=== PATIENT | female | born 1940 | race Hispanic/Latino ===

== ENCOUNTER 2020-03-02 14:56 | Inpatient (IN) | payer OTHER ==
--- OUTSIDE RECORDS SUMMARY | 2020-03-02 14:59 | XMS REPORT | Clinical Summary ---
:1940 Author Organization [facility] Address [address] [place] [address] Care Team Providers Name Role Phone Otto Magdaleno MD Primary Care Provider [phone] Allergies Active Allergy Reactions Severity Noted Date Comments Hydrochlorothiazide Other (See Comments) High 12/25/2018 Severe Hyponatremia (per Dr. Watkins) Medications Medication Sig Dispensed Refills Start Date End Date Status aspirin (ECOTRIN) 81 MG Take 81 mg by 0 Active enteric coated tablet mouth daily. apixaban (ELIQUIS) 5 mg Take by mouth 2 0 Active tablet (two) times a day. simvastatin (ZOCOR) 40 Take 40 mg by 0 Active MG tablet mouth nightly. calcium Take 1 tablet by 0 Act mia carbonate/vitamin D3 mouth daily. (CALCIUM 600 + D,3, ORAL) psyllium (METAMUCIL) Take 1 packet by 0 Active 3.4 gram packet mouth 2 (two) times a day. Active Problems Problem Noted Date Acute renal failure (ARF) 12/24/2018 Social History Tobacco Use Types Packs/Day Years Used Date Never Assessed Alcohol Use Drinks/Week oz/Week Comments Never Alcohol Habits Answer Date Recorded How often do you have a drink containing alcohol? Never 12/24/2018 How many drinks containing alcohol do you have on a typical Not asked day when you are drinking? How often do you have six or more drinks on one occasion? No t asked Sex Assigned at Date Recorded Not on file Job Start Date Occupation Industry Not on file Not on file Not on file Travel History Travel Start Travel End No recent travel history available. Last Filed Vital Signs Not on file Plan of Treatment Health Maintenance Due Date Last Done Comments SHINGLES VACCINES (#1) 01/16/1988 65+ PNEUMOCOCCAL VACCINE (1 of 2 - PCV13) 2003 INFLUENZA VACCINE 03/21/2020 Results Not on fileafter 03/02/2019 Insurance Payer Benefit Plan / Subscriber ID Effective Dates Phone Addre ss Type Group [facility] MED[facility] MEDIC[facility] xxxxxxxxx 2018-Present HMO HMO/PPO MEDICAID MEDICAID xxxxxxxxx 2018-Present Med icaid Advance Directives For more information, please contact: [phone] Type Date Recorded Patient Lead Furnace Operator Explanati on Advance Directives, Living Will 12/24/2018 5:54 PM and 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
[2020-03-02] MEDS ORDERED: NA CHLORIDE 0.9% 1,000 ML ONE (15:19)
[2020-03-02] MEDS ORDERED: ONDANSETRON 4 MG/2 ML VIAL ONE (15:19)
[2020-03-02] MEDS ORDERED: MORPHINE 2 MG/ML SYR ONE ×2 (15:19→20:14)
[2020-03-02 15:23] LABS: Absolute Lymphocytes (CBC) 2.3 K/uL (0.7-4.9); Basophils % 0.7 % (0-1.3); Hematocrit 38.9 % (36.0-45.0); Lymphocytes % 21.9 % (15.3-44.8); MPV 9.3 fL (7.6-11.3); RBC Red Blood Cell Count 4.14 M/uL (3.86-4.86)
[2020-03-02 15:29] LABS: Protime INR 1.42
--- NOTE | 2020-03-02 15:52 | RAD REPORT ---
EXAM DESCRIPTION: CT - CTHCSPWOC - 03/02/2020 3:41 pm CLINICAL HISTORY: PAIN COMPARISON: No comparisons TECHNIQUE: Axial 5 mm thick images of the head were obtained. Axial 2 mm thick images of the cervic al spine were obtained with sagittal and coronal reconstruction images generated and reviewed. All CT scans are performed using dose optimization technique as appropriate and may include automated exposure control or mA/KV adjustment according to patient size. FINDINGS: No intracranial hemorrhage, mass, edema or acute intracranial finding. No suspicion for ac burns paiute infarction. Atrophy and chronic ischemic changes are present. Ventricles are in proportion to the volume loss. Mastoid air cells are clear. No acute paranasal sinus finding. No globe or orbit abnorm ality seen. Cervical bodies are normal in height. No subluxation abnormality. Advanced degenerative disc disease involves the discs and endplates at C5-6 and C6-7. Posterior ligamentous calcifications are present a t multiple levels. No fracture or acute bony abnormality. Central canal detail is inherently limited . No paraspinal mass or hematoma. IMPRESSION: Atrophy and chronic ischemic changes are present. No acute intracranial finding. Cervical spine degenerative changes as detailed. No acute findings seen.
--- NOTE | 2020-03-02 15:53 | RAD REPORT ---
EXAM DESCRIPTION: RAD - Chest Single View - 03/02/2020 3:36 pm CLINICAL HISTORY: COUGH, fall, hip fracture COMPARISON: None TECHNIQUE: AP portable chest image was obtained 03/02/2020 3:36 pm . FINDINGS: Scattered fibrotic lung changes are evident. No peripheral mass, consolidation or pulmonar y contusion. Cardiomegaly is present. Vasculature is mildly prominent. Significant failure or volume overload are not seen. No measurable pleural effusion and no pneumothorax. No acute bony abnormality seen. No acute aortic findings suspected. IMPRESSION: Cardiomegaly without significant failure or volume overload. Prominence of the interstitial lung pattern favored to be chronic.
--- NOTE | 2020-03-02 15:54 | RAD REPORT ---
EXAM DESCRIPTION: RAD - Pelvis - 03/02/2020 3:36 pm CLINICAL HISTORY: PAIN, fall, pelvic and left hip pain COMPARISON: Hip Left 2 View dated 03/02/2020 TECHNIQUE: AP imaging of the pelvis was obtained. FINDINGS: Lower lumbar degenerative changes are present only partially imaged. Moderate severity SI joint degenerative changes seen. The left superior and inferior pubic rami are not well visualized. F racture is doubtful. Right femur and right hip joint unremarkable. Left femur intertrochanteric fracture is present. Femoral neck is intact. No dislocation or focal lef t femoral head abnormality. Lesser trochanter still appears to be attached to the main body of the fe mur. IMPRESSION: Left femur intertrochanteric fracture with no significant distraction or angulation defo rmity. Superior and inferior pubic rami are not well visualized.
--- NOTE | 2020-03-02 15:55 | RAD REPORT ---
EXAM DESCRIPTION: RAD - Hip Left 2 View - 03/02/2020 3:36 pm CLINICAL HISTORY: PAIN, fall, left hip pain COMPARISON: No comparisons FINDINGS: AP and cross-table lateral views were obtained. The cross-table lateral view is significan tly limited due to large body habitus. Left femur intertrochanteric fracture is present with no significant degree of distraction or angulat ion deformity. Lesser trochanter still appears to be attached. No AVN or focal femoral head abnormali ty. No pathologic component seen. No soft tissue abnormality. IMPRESSION: Left femur intertrochanteric fracture as detailed.
--- NOTE | 2020-03-02 16:05 | EDPHYS ---
Physician Documentation [facility] Name: Teresa Priest Age: 80 yrs Sex: Female : 1940 Arrival Date: 03/02/2020 Time: 14:57 Bed 7 Private MD: ESTEBAN Physician Huy Mane HPI: 03/02 15:06 This 80 yrs old Female presents to ER via EMS with complaints of fall to hafsa ground, left hip pain,cannot bear weight . 15:06 The patient or guardian reports decreased range of motion, pain. that occurred at home, hafsa sustained from unknown reason, the left lower extremity is shortened, left leg is externally rotated, The patient is not able to ambulate. Patient is not able to bear weight. There is no radiation of the patient's discomfort. The complaints affect the left femoral area and left hip. Onset: The symptoms/episode began/occurred just prior to arrival. Modifying factors: The symptoms are alleviated by remaining still, the symptoms are aggravated by any movement, flexion, weight bearing. Associated signs and symptoms: Loss of consciousness: the patient experienced no loss of consciousness, Pertinent positives: headache. Severity of symptoms: At their worst the symptoms were moderate, in the emergency department the symptoms are unchanged. The patient has not experienced similar symptoms in the past. Historical: - Allergies: 15:43 No Known Allergies; tw2 - Home Meds: 15:03 aspirin 81 mg Oral TbEC 1 tab once daily [Active]; metformin 500 mg Oral tab 1 tab 2 tw2 times per day [Active]; 15:43 Eliquis 5 mg oral tab 1 tab 2 times per day [Active]; metoprolol tartrate 25 mg Oral tw2 tab 0.5 tab 2 times per day [Active]; lisinopril-hydrochlorothiazide 20-25 mg oral tab 1 tab once daily [Active]; potassium chloride 20 mEq Oral TbER 1 tab once daily [Active]; simvastatin 40 mg Oral tab 1 tab once daily [Active]; furosemide 20 mg Oral tab 1 tab once daily [Active]; - PMHx: 15:03 CHF; Diabetes - NIDDM; tw2 15:43 Hypertension; tw2 - Immunization history:: Adult Immunizations. - Social history:: Smoking status: . - Immunization history: Last tetanus immunization: unknown. - Family history:: not pertinent. ROS: 15:06 Constitutional: Negative for fever, chills, and weight loss, Eyes: Negative for injury, hafsa pain, redness, and discharge, ENT: Negative for injury, pain, and discharge, Neck: Negative for injury, pain, and swelling, Cardiovascular: Negative for chest pain, palpitations, and edema, Respiratory: Negative for shortness of breath, cough, wheezing, and pleuritic chest pain, Abdomen/GI: Negative for abdominal pain, nausea, vomiting, diarrhea, and constipation, Back: Negative for injury and pain, : Negative for injury, bleeding, discharge, and swelling, Skin: Negative for injury, rash, and discoloration, Neuro: Negative for headache, weakness, numbness, tingling, and seizure, Psych: Negative for depression, anxiety, suicide ideation, homicidal ideation, and hallucinations, Allergy/Immunology: Negative for hives, rash, and allergies, Endocrine: Negative for neck swelling, polydipsia, polyuria, polyphagia, and marked weight changes, Hematologic/Lymphatic: Negative for swollen nodes, abnormal bleeding, and unusual bruising. 15:06 MS/extremity: Positive for decreased range of motion, pain, tenderness, of the left hip, left inner thigh and left upper thigh. Exam: 15:06 Constitutional: This is a well developed, well nourished patient who is awake, alert, hafsa and in no acute distress. Head/Face: Normocephalic, atraumatic. Eyes: Pupils equal round and reactive to light, extra-ocular motions intact. Lids and lashes normal. Conjunctiva and sclera are non-icteric and not injected. Cornea within normal limits. Periorbital areas with no swelling, redness, or edema. ENT: Nares patent. No nasal discharge, no septal abnormalities noted. Tympanic membranes are normal and external auditory canals are clear. Oropharynx with no redness, swelling, or masses, exudates, or evidence of obstruction, uvula midline. Mucous membranes moist. Neck: Trachea midline, no thyromegaly or masses palpated, and no cervical lymphadenopathy. Supple, full range of motion without nuchal rigidity, or vertebral point tenderness. No Meningismus. Chest/axilla: Normal chest wall appearance and motion. Nontender with no deformity. No lesions are appreciated. Cardiovascular: Regular rate and rhythm with a normal S1 and S2. No gallops, murmurs, or rubs. Normal PMI, no JVD. No pulse deficits. Respiratory: Lungs have equal breath sounds bilaterally, clear to auscultation and percussion. No rales, rhonchi or wheezes noted. No increased work of breathing, no retractions or nasal flaring. Abdomen/GI: Soft, non-tender, with normal bowel sounds. No distension or tympany. No guarding or rebound. No evidence of tenderness throughout. Back: No spinal tenderness. No costovertebral tenderness. Full range of motion. Female : Normal external genitalia. Skin: Warm, dry with normal turgor. Normal color with no rashes, no lesions, and no evidence of cellulitis. Neuro: Awake and alert, GCS 15, oriented to person, place, time, and situation. Cranial nerves II-XII grossly intact. Motor strength 5/5 in all extremities. Sensory grossly intact. Cerebellar exam normal. Normal gait. Psych: Awake, alert, with orientation to person, place and time. Behavior, mood, and affect are within normal limits. 15:06 Musculoskeletal/extremity: ROM: limited active range of motion, limited passive range of motion, Circulation is intact in all extremities. Sensation intact. Compartment Syndrome exam of affected extremity: is normal. DVT Exam: negative Homans' sign noted on exam, no appreciated bluish discoloration, no erythema, no increased warmth, pain, swelling, tenderness. 15:27 Cardiovascular: Exam negative for acute changes, Rate: bradycardic, Rhythm: hafsa irregularly irregular. 15:27 ECG was reviewed by the Attending Physician. Vital Signs: 14:59 Temp 98.8(O); Weight 70.76 kg (R); Height 5 ft. 4 in. (162.56 cm); Pain 1/10; tw2 15:03 BP 174 / 97; Pulse 72; Resp 16; Pulse Ox 97% on R/A; tw2 16:03 BP 162 / 78; Pulse 71; Resp 17; Pulse Ox 98% on R/A; tw2 17:00 BP 178 / 72; Pulse 69; Resp 18; Pulse Ox 98% on R/A; em 18:00 BP 145 / 73; Pulse 66; Resp 18; Pulse Ox 97% on R/A; em 19:15 BP 142 / 68; Pulse 68; Resp 16; Temp 98.2(O); Pulse Ox 99% on R/A; lp1 20:36 BP 170 / 83; Pulse 77; Resp 16; Pulse Ox 97% on R/A; lp1 14:59 Body Mass Index 26.78 (70.76 kg, 162.56 cm) tw2 Mahad Coma Score: 15:02 Eye Response: spontaneous(4). Verbal Response: oriented(5). Motor Response: obeys hb commands(6). Total: 15. 16:03 Eye Response: spontaneous(4). Verbal Response: oriented(5). Motor Response: obeys tw2 commands(6). Total: 15. 17:00 Eye Response: spontaneous(4). Verbal Response: oriented(5). Motor Response: obeys em commands(6). Total: 15. 18:00 Eye Response: spontaneous(4). Verbal Response: oriented(5). Motor Response: obeys em commands(6). Total: 15. Trauma Score (Adult): 15:02 Eye Response: spontaneous(1); Verbal Response: oriented(1); Motor Response: obeys hb commands(2); Systolic BP: > 89 mm Hg(4); Respiratory Rate: 10 to 29 per min(4); [place] Score: 15; Trauma Score: 12 16:03 Eye Response: spontaneous(1); Verbal Response: oriented(1); Motor Response: obeys tw2 commands(2); Systolic BP: > 89 mm Hg(4); Respiratory Rate: 10 to 29 per min(4); Mahad Score: 15; Trauma Score: 12 17:00 Eye Response: spontaneous(1); Verbal Response: oriented(1); Motor Response: obeys em commands(2); Systolic BP: > 89 mm Hg(4); Respiratory Rate: 10 to 29 per min(4); Mahad Score: 15; Trauma Score: 12 18:00 Eye Response: spontaneous(1); Verbal Response: oriented(1); Motor Response: obeys em commands(2); Systolic BP: > 89 mm Hg(4); Respiratory Rate: 10 to 29 per min(4); [place] Score: 15; Trauma Score: 12 MDM: 14:57 Patient medically screened. [facility] 15:12 Differential diagnosis: hip fracture, intertrochanteric fracture, femoral neck hafsa fracture, femoral shaft fracture, strain. Data reviewed: vital signs, nurses notes, lab test result(s), EKG, radiologic studies. Data interpreted: account adjuster: rate is 72 beats/min, rhythm is normal sinus rhythm, Pulse oximetry: on room air. Test interpretation: by ED physician or midlevel provider: ECG, plain radiologic studies. Counseling: I had a detailed discussion with the patient and/or guardian regarding: the historical points, exam findings, and any diagnostic results supporting the discharge/admit diagnosis, lab results, radiology results, the need for further work-up and treatment in the hospital. 16:02 Physician consultation: Jimenez Jj MD and will see patient in inpatient room. ED hafsa course: TO DR WEATHERS AND CONSULT DR JOHNSON. 03/02 15:05 Order name: Basic Metabolic Panel; Complete Time: 16:34 [facility] [place] 03/02 15:05 Order name: CBC with Diff; Complete Time: 16:01 [facility] [place] 03/02 15:05 Order name: LFT's; Complete Time: 16:34 [facility] [place] 03/02 15:05 Order name: Magnesium; Complete Time: 16:34 [facility] [place] 03/02 15:05 Order name: NT PRO-BNP; Complete Time: 16:34 [facility] [place] 03/02 15:05 Order name: PT-INR; Complete Time: 16:01 [facility] [place] 03/02 15:05 Order name: Troponin (emerg Dept Use Only); Complete Time: 16:34 [facility] [place] 03/02 15:05 Order name: XRAY Chest (1 view); Complete Time: 16:01 [facility] [place] 03/02 15:05 Order name: Pelvis XRAY; Complete Time: 16:01 [facility] [place] 03/02 15:05 Order name: Hip Left 2 View XRAY; Complete Time: 16:01 [facility] [place] 03/02 15:05 Order name: CT Head C Spine; Complete Time: 16:01 [facility] [place] 03/02 15:05 Order name: Urine Culture [facility] 03/02 16:28 Order name: Urine Dipstick--Ancillary (enter results) 03/02 15:05 Order name: EKG; Complete Time: 15:05 [facility] 03/02 15:05 Order name: Cardiac monitoring; Complete Time: 15:18 [facility] [place] 03/02 15:05 Order name: EKG - Nurse/Tech; Complete Time: 15:18 [facility] [place] 03/02 15:05 Order name: IV Saline Lock; Complete Time: 15:18 [facility] [place] 03/02 15:05 Order name: Labs collected and sent; Complete Time: 15:18 [facility] [place] 03/02 15:05 Order name: O2 Per Protocol; Complete Time: 15:05 [facility] [place] 03/02 15:05 Order name: O2 Sat Monitoring; Complete Time: 15:05 [facility] [place] 03/02 15:05 Order name: Urine Dipstick-Ancillary (obtain specimen); Complete Time: 19:02 [facility] [place] 03/02 16:12 Order name: [place]; Complete Time: 16:22 tw2 EC:27 Rate is 58 beats/min. Rhythm is irregularly irregular. QRS [place] is Normal. NM interval hafsa is normal. QRS interval is normal. QT interval is normal. No Q waves. T waves are Normal. No ST changes noted. Clinical impression: Atrial Fibrillation. Interpreted by me. Reviewed by me. Administered Medications: 15:15 Drug: morphine 2 mg Route: IVP; Site: right antecubital; tw2 15:15 Drug: Zofran (Ondansetron) 4 mg Route: IVP; Site: right antecubital; tw2 16:51 Follow up: Response: No adverse reaction tw2 15:15 Drug: NS 0.9% 1000 ml Route: IV; Rate: 125 ml/hr; Site: right antecubital; tw2 20:18 Follow up: IV Status: Infusion continued upon admission lp1 16:55 Drug: Magnesium Sulfate 1 grams Route: IVPB; Infused Over: 1 hrs; Site: left tw2 antecubital; 17:55 Follow up: Response: No adverse reaction; IV Status: Completed infusion tw2 20:19 Drug: morphine 2 mg Route: IVP; Site: right antecubital; lp1 20:36 Follow up: Response: No adverse reaction; Pain is decreased lp1 Disposition: 03/02/20 16:04 Hospitalization ordered by Alonso Weathers for Inpatient Admission. Preliminary diagnosis are Fall due to bumping against object, Displaced intertrochanteric fracture of left femur, Type 2 diabetes mellitus, Atrial fibrillation and flutter, Hypomagnesemia. - Bed requested for Telemetry/MedSurg (Inpatient). - Status is Inpatient Admission. lp1 - Condition is Stable. - Problem is new. - Symptoms have improved. Signatures: Dispatcher [employer] EDBrenda Salazar RN RN dw Anderson, Corey, MD MD cha [place], Jailene, RN RN lp1 Shelly Tan RN RN Lenore Auguste RN RN tw2 Corrections: (The following items were deleted from the chart) 15:43 15:03 Allergies: No Known Allergies; tw2 tw2 15:43 15:03 Home Meds: Eliquis 2.5 mg oral tab 1 tab 2 times per day; tw2 tw2 16:09 16:04 Hospitalization Ordered by Alonso Weathers for Inpatient Admission. Preliminary hafsa diagnosis is Fall due to bumping against object; Displaced intertrochanteric fracture of left femur; Type 2 diabetes mellitus. Bed requested for Telemetry/MedSurg (Inpatient). Status is Inpatient Admission. Condition is Stable. Problem is new. Symptoms have improved. hafsa 16:35 16:09 03/02/2020 16:04 Hospitalization Ordered by Alonso Weathers for Inpatient hafsa Admission. Preliminary diagnosis is Fall due to bumping against object; Displaced intertrochanteric fracture of left femur; Type 2 diabetes mellitus; Atrial fibrillation and flutter. Bed requested for Telemetry/MedSurg (Inpatient). Status is Inpatient Admission. Condition is Stable. Problem is new. Symptoms have improved. hafsa 17:17 16:35 03/02/2020 16:04 Hospitalization Ordered by Alonso Weathers for Inpatient dw Admission. Preliminary diagnosis is Fall due to bumping against object; Displaced intertrochanteric fracture of left femur; Type 2 diabetes mellitus; Atrial fibrillation and flutter; Hypomagnesemia. Bed requested for Telemetry/MedSurg (Inpatient). Status is Inpatient Admission. Condition is Stable. Problem is new. Symptoms have improved. hafsa 20:37 17:17 03/02/2020 16:04 Hospitalization Ordered by Alonso Weathers for Inpatient lp1 Admission. Preliminary diagnosis is Fall due to bumping against object; Displaced intertrochanteric fracture of left femur; Type 2 diabetes mellitus; Atrial fibrillation and flutter; Hypomagnesemia. Bed requested for Telemetry/MedSurg (Inpatient). Status is Inpatient Admission. Condition is Stable. Problem is new. Symptoms have improved. dw
--- NOTE | 2020-03-02 16:05 | ER ---
Nurse's Notes [facility] Name: Teresa Priest Age: 80 yrs Sex: Female : 1940 Arrival Date: 03/02/2020 Time: 14:57 Bed 7 Private MD: Diagnosis: Fall due to bumping against object;Displaced intertrochanteric fracture of left femur;Type 2 diabetes mellitus;Atrial fibrillation and flutter;Hypomagnesemia Presentation: 03/02 14:59 Chief complaint: EMS states: pt was shopping in the mall, fell from standing, was tw2 standing, complaining of LEFT hip pain, and on the way here pt states pain has increased. Coronavirus screen: At this time, the client does not indicate any symptoms associated with coronavirus-19. Ebola Screen: Patient denies travel to an Ebola-affected area in the 21 days before illness onset. Initial Sepsis Screen: Does the patient meet any 2 criteria? No. Patient's initial sepsis screen is negative. Does the patient have a suspected source of infection? No. Patient's initial sepsis screen is negative. Risk Assessment: Do you want to hurt yourself or someone else? Patient reports no desire to harm self or others. Onset of symptoms was March 02, 2020. 14:59 Method Of Arrival: EMS: [facility] tw2 14:59 Acuity: JOHNATHAN 3 tw2 15:05 Care prior to arrival: None. Mechanism of Injury: Fall from standing position. Trauma hb event details: Injury occurred in the [facility], Injury occurred: in a public building. Injury occurred: March 02, 2020. Triage Assessment: 15:00 General: Appears in no apparent distress. well groomed, Behavior is calm, cooperative, tw2 appropriate for age. Pain: Complains of pain in left hip. Musculoskeletal: Capillary refill < 3 seconds. Trauma Activation: Alert Physician: ED Physician; Name: ; Notified At: ; Arrived At: Physician: General Surgeon; Name: ; Notified At: ; Arrived At: Physician: Radiology; Name: ; Notified At: ; Arrived At: Physician: Respiratory; Name: ; Notified At: ; Arrived At: Physician: Lab; Name: ; Notified At: ; Arrived At: Historical: - Allergies: 15:43 No Known Allergies; tw2 - Home Meds: 15:03 aspirin 81 mg Oral TbEC 1 tab once daily [Active]; metformin 500 mg Oral tab 1 tab 2 tw2 times per day [Active]; 15:43 Eliquis 5 mg oral tab 1 tab 2 times per day [Active]; metoprolol tartrate 25 mg Oral tw2 tab 0.5 tab 2 times per day [Active]; lisinopril-hydrochlorothiazide 20-25 mg oral tab 1 tab once daily [Active]; potassium chloride 20 mEq Oral TbER 1 tab once daily [Active]; simvastatin 40 mg Oral tab 1 tab once daily [Active]; furosemide 20 mg Oral tab 1 tab once daily [Active]; - PMHx: 15:03 CHF; Diabetes - NIDDM; tw2 15:43 Hypertension; tw2 - Immunization history:: Adult Immunizations. - Social history:: Smoking status: . - Immunization history: Last tetanus immunization: unknown. - Family history:: not pertinent. Screenin:04 Abuse screen: Denies threats or abuse. Nutritional screening: No deficits noted. tw2 Tuberculosis screening: No symptoms or risk factors identified. Fall Risk Secondary diagnosis (15 points) impaired mobility. Primary Survey: 15:02 NO uncontrolled hemorrhage observed. A: The patient is alert. Airway: patent, No hb supplemental oxygen in use on arrival. Trachea midline. Breathing/Chest: Respiratory pattern: regular, Respiratory effort: spontaneous, unlabored, Chest inspection: symmetrical rise and fall of the chest. Circulation: Pulses: palpable right radial artery, right dorsalis pedis artery, left radial artery and left dorsalis pedis artery. Skin color: pink, Skin temperature: warm, dry. Disability Alert. Exposure/Environment: All clothing and personal items were removed. Forensic evidence collection is not deemed to be indicated at this time. Items placed in patient belonging bag. There is no evidence of uncontrolled external bleeding. Obvious injury(ies) are noted at this time: SHORTENING AND EXTERNAL ROTATION NOTED TO LEFT LEG A warming method has been applied: A warm blanket has been provided to the patient. 16:02 Reassessment Airway Airway Patent Breathing/Chest Respiratory pattern Regular tw2 Respiratory effort Spontaneous Unlabored Breath sounds Diminished Chest inspection Symmetrical Circulation Heart tones Present Disability Alert. Secondary Survey: 15:08 HEENT: No deficits noted. Gastrointestinal: No deficits noted. : No signs and/or hb symptoms were reported regarding the genitourinary system. Musculoskeletal: Reports LEFT HIP AND THIGH PAIN. Assessment: 15:05 General: Appears in no apparent distress. Behavior is calm, cooperative. Pain: Pain hb currently is 1 out of 10 on a pain scale. 15:05 Neuro: Level of Consciousness is awake, alert, obeys commands, Oriented to person, hb place, time, situation. EENT: No signs and/or symptoms were reported regarding the EENT system. Cardiovascular: Capillary refill < 3 seconds Patient's skin is warm and dry. Respiratory: Airway is patent Respiratory effort is even, unlabored, Respiratory pattern is regular, symmetrical, Breath sounds are clear bilaterally. GI: No signs and/or symptoms were reported involving the gastrointestinal system. : No signs and/or symptoms were reported regarding the genitourinary system. Derm: Skin is pink, warm \T\ dry. Musculoskeletal: SHORTENING AND EXTERNAL ROTATION OF LEFT LEG Reports LEFT HIP AND THIGH PAIN. 15:38 Reassessment: pts daughter Kaelyn Rey #[phone], correct access code was tw2 given to us for status of pt, results still pending from provider at this time. 16:08 Reassessment: pts daughter [place] called to get update on pt at this time, correct tw2 access code was given to us for status information, status of pt was given as well. 17:00 Reassessment: Patient appears in no apparent distress at this time. No changes from tw2 previously documented assessment. Patient and/or family updated on plan of care and expected duration. Pain level reassessed. Patient is alert, oriented x 3, equal unlabored respirations, skin warm/dry/pink. 18:00 Reassessment: Patient appears in no apparent distress at this time. No changes from tw2 previously documented assessment. Patient and/or family updated on plan of care and expected duration. Pain level reassessed. Patient is alert, oriented x 3, equal unlabored respirations, skin warm/dry/pink. 18:52 Reassessment: Dr. Jed Stone is pts fabric worker supervisor in [place]. tw2 19:18 Reassessment: Ortho at bedside discussing care with patient. lp1 20:21 Reassessment: Patient is alert, oriented x 3, equal unlabored respirations, skin lp1 warm/dry/pink. General: Appears in no apparent distress. Cardiovascular: Capillary refill < 3 seconds in bilateral toes Pulses are palpable in left dorsalis pedis artery. Vital Signs: 14:59 Temp 98.8(O); Weight 70.76 kg (R); Height 5 ft. 4 in. (162.56 cm); Pain 1/10; tw2 15:03 BP 174 / 97; Pulse 72; Resp 16; Pulse Ox 97% on R/A; tw2 16:03 BP 162 / 78; Pulse 71; Resp 17; Pulse Ox 98% on R/A; tw2 17:00 BP 178 / 72; Pulse 69; Resp 18; Pulse Ox 98% on R/A; em 18:00 BP 145 / 73; Pulse 66; Resp 18; Pulse Ox 97% on R/A; em 19:15 BP 142 / 68; Pulse 68; Resp 16; Temp 98.2(O); Pulse Ox 99% on R/A; lp1 20:36 BP 170 / 83; Pulse 77; Resp 16; Pulse Ox 97% on R/A; lp1 14:59 Body Mass Index 26.78 (70.76 kg, 162.56 cm) tw2 Mahad Coma Score: 15:02 Eye Response: spontaneous(4). Verbal Response: oriented(5). Motor Response: obeys hb commands(6). Total: 15. 16:03 Eye Response: spontaneous(4). Verbal Response: oriented(5). Motor Response: obeys tw2 commands(6). Total: 15. 17:00 Eye Response: spontaneous(4). Verbal Response: oriented(5). Motor Response: obeys em commands(6). Total: 15. 18:00 Eye Response: spontaneous(4). Verbal Response: oriented(5). Motor Response: obeys em commands(6). Total: 15. Trauma Score (Adult): 15:02 Eye Response: spontaneous(1); Verbal Response: oriented(1); Motor Response: obeys hb commands(2); Systolic BP: > 89 mm Hg(4); Respiratory Rate: 10 to 29 per min(4); [place] Score: 15; Trauma Score: 12 16:03 Eye Response: spontaneous(1); Verbal Response: oriented(1); Motor Response: obeys tw2 commands(2); Systolic BP: > 89 mm Hg(4); Respiratory Rate: 10 to 29 per min(4); [place] Score: 15; Trauma Score: 12 17:00 Eye Response: spontaneous(1); Verbal Response: oriented(1); Motor Response: obeys em commands(2); Systolic BP: > 89 mm Hg(4); Respiratory Rate: 10 to 29 per min(4); Mahad Score: 15; Trauma Score: 12 18:00 Eye Response: spontaneous(1); Verbal Response: oriented(1); Motor Response: obeys em commands(2); Systolic BP: > 89 mm Hg(4); Respiratory Rate: 10 to 29 per min(4); [place] Score: 15; Trauma Score: 12 ED Course: 14:57 Patient arrived in ED. hafsa 14:57 Huy Mane MD is Attending Physician. hafsa 14:57 Placed in gown. Bed in low position. Side rails up X 1. environmental monitoring technician on. Pulse ox tw2 on. NIBP on. Warm blanket given. 14:58 Lenore Auguste RN is Primary Nurse. tw2 15:00 Triage completed. tw2 15:00 Arm band placed on. tw2 15:09 Patient maintains SpO2 saturation greater than 95% on room air. Thermoregulation: warm hb blanket given to patient. 15:15 Inserted saline lock: 20 gauge in right antecubital area, using aseptic technique. tw2 Blood collected. 15:21 Initial lab(s) drawn, by ED staff, sent to lab. EKG done, by ED staff, reviewed by [email or web address] Huy Mane MD. 15:36 XRAY Chest (1 view) In Process Unspecified. EDMS 15:36 Pelvis XRAY In Process Unspecified. EDMS 15:36 Hip Left 2 View XRAY In Process Unspecified. EDMS 15:41 CT Head C Spine In Process Unspecified. EDMS 16:03 Alonso Crane is Hospitalizing Provider. [facility] 16:17 Tirado cath inserted, using sterile technique, 18 Fr., by ny, balloon inflated, to tw2 gravity drainage, urine specimen collected. other Yenni, Tech served as news writer. 17:00 Report given to REBEL Dent \T\ REBEL Rincon. tw2 19:15 No provider procedures requiring assistance completed. Patient admitted, IV remains in lp1 place. Administered Medications: 15:15 Drug: morphine 2 mg Route: IVP; Site: right antecubital; tw2 15:15 Drug: Zofran (Ondansetron) 4 mg Route: IVP; Site: right antecubital; tw2 16:51 Follow up: Response: No adverse reaction tw2 15:15 Drug: NS 0.9% 1000 ml Route: IV; Rate: 125 ml/hr; Site: right antecubital; tw2 20:18 Follow up: IV Status: Infusion continued upon admission lp1 16:55 Drug: Magnesium Sulfate 1 grams Route: IVPB; Infused Over: 1 hrs; Site: left tw2 antecubital; 17:55 Follow up: Response: No adverse reaction; IV Status: Completed infusion tw2 20:19 Drug: morphine 2 mg Route: IVP; Site: right antecubital; lp1 20:36 Follow up: Response: No adverse reaction; Pain is decreased lp1 Intake: 15:02 PO: 0ml; Total: 0ml. hb Outcome: 16:04 Decision to Hospitalize by Provider. [facility] 16:24 Patient's length of stay in the Emergency Department was greater than 2 hours. d/t tw2 admission processPatient's length of stay extended due to 19:15 Condition: stable lp1 19:15 Instructed on the need for admit. 20:09 Admitted to Med/surg via stretcher, room 224, with chart, Report called to REBEL Campos lp1 20:37 Patient left the ED. lp1 Signatures: Dispatcher [employer] EDMS Huy Mane MD MD cha Munoz, Edgar, RN RN em Pena, Laura, RN RN 1 Shelly Tan RN RN hb Wise, Tara, RN RN [facility] Teresa Farfan [facility] Corrections: (The following items were deleted from the chart) 15:43 15:03 Allergies: No Known Allergies; tw2 tw2 15:43 15:03 Home Meds: Eliquis 2.5 mg oral tab 1 tab 2 times per day; tw2 tw2 16:10 15:38 Reassessment: pts daughter Kaelyn Rey #[phone] tw2 tw2 19:35 19:15 BP 142 / 68; Pulse 68bpm; Resp 16bpm; Pulse Ox 99% RA; lp1 lp1
[2020-03-02 16:11] LABS: Albumin 3.5 g/dL (3.4-5.0); Bilirubin Direct 0.1 mg/dL (0-0.2); Bilirubin Total 0.4 mg/dL (0.2-1.0); Magnesium 1.7 mg/dL (1.8-2.4); Potassium 3.5 mmol/L (3.5-5.1); Troponin (Emerg Dept Use Only) 0.08 ng/mL (0.0-0.045)
--- NOTE | 2020-03-02 16:54 | P.HP ---
Certification for Inpatient Patient admitted to: Inpatient With expected LOS: >2 Midnights Practitioner: I am a practitioner with admitting privileges, knowledge of patient current condition, hospital course, and medical plan of care. Services: Services provided to patient in accordance with Admission requirements found in Title 42 Section 412.3 of the Code of Federal Regulations Patient History Date of Service: 03/02/20 Reason for admission: Fall, left hip fracture. History of Present Illness: 80-year-old woman with a history chronic atrial fibrillation on Eliquis anticoagulation, history of hypertension and diabetes had a mechanical fall at [facility] and sustained pain to the left hip. She stated she tripped and fell knocking cart and landed on her left side. Patient presented to the emergency department where images suggest left hip intertrochanteric fracture. EKG demonstrates atrial fibrillation with slow ventricular response. Patient denied any prior dizziness or chest pain or shortness of breath and currently has no other complaints apart from pain in the left hip. Patient is visiting [place] from [place]. Her initial troponin is mildly elevated to 0.08. Her last dose of Eliquis was this morning. Orthopedic surgeon Dr. Jj was contacted by the ED physician who recommended admission to the hospitalist service for him to consult and manage the hip fracture. - Past Medical/Surgical History -: Hypertension -: Diabetes mellitus type 2 -: Chronic atrial fibrillation - Family History Mother -: Diabetes - Social History Smoking Status: Never smoker Alcohol use: No CD- Drugs: No Place of Residence: Home Review of Systems Other: Except as documented, all other systems reviewed and negative. Physical Examination - Physical Exam General: Alert, In no apparent distress, Oriented x3 HEENT: Atraumatic, Mucous membr. moist/pink, EOMI Neck: Supple, JVD not distended Respiratory: Clear to auscultation bilaterally, Normal air movement Cardiovascular: No edema, Normal S1 S2, Irregular heart rate/rhythm Capillary refill: <2 Seconds Gastrointestinal: Normal bowel sounds, Soft and benign, No tenderness Musculoskeletal: No swelling, No erythema Integumentary: No rashes, No erythema Neurological: Normal speech, Other (Nonfocal. Moves all extremities except left lower extremity.) - Studies Laboratory Data (last 24 hrs) 03/02/20 15:15: PT 16.6 H, INR 1.42 03/02/20 15:15: WBC 10.4, Hgb 12.8, Hct 38.9, Plt Count 197 03/02/20 15:15: Sodium 143, Potassium 3.5, BUN 25 H, Creatinine 0.93, Glucose 121 H, Magnesium 1.7 L, Total Bilirubin 0.4, AST 14 L, ALT 20, Alkaline Phosphatase 83 Assessment and Plan - Problems (Diagnosis) (1) Fall Current Visit: Yes Status: Acute (2) Closed left hip fracture Current Visit: Yes Status: Acute (3) Chronic atrial fibrillation Current Visit: Yes Status: Acute (4) Chronic anticoagulation Current Visit: Yes Status: Acute (5) Diabetes mellitus type 2 in nonobese Current Visit: Yes Status: Acute (6) Essential hypertension Current Visit: Yes Status: Acute - Plan Admit patient to the medical floor. Hold Eliquis. Orthopedic consult. Pain management with IV morphine. Cardiology Consult for preop clearance per orthopedic request. May need to hold anticoagulation for 48 hr prior to surgery. Insulin sliding scale for glucose management. Continue home antihypertensives. Hydralazine p.r.n. for BP spikes. Patient would like to confirm with her daughter prior to be giving consent for surgery. - Advance Directives Does patient have a Living Will: No Does patient have a Durable POA for Healthcare: No - Code Status/Comfort Care Code Status: Full Code
[2020-03-02] MEDS ORDERED: MAGNESIUM SULFATE 1 gm IVPB 1 GM/100 ML BAG IV ONE (17:05)
[2020-03-02 17:54] LABS: Urine Blood TRACE (NEG); Urine Glucose NEGATIVE (NEG); Urine Protein 2+ (NEG)
--- NOTE | 2020-03-02 20:57 | CON ---
Date of Consultation: 03/02/2020 This is my first time seeing this patient to my knowledge. She is an 80-year-old female, who apparently was walking and slipped, falling onto her left side. She was seen and examined in the Emergency Department where she was ruled out for other injuries; however, she was complaining of pain in her left hip and x-rays were taken. X-rays demonstrated a mildly displaced intertrochanteric fracture on the left. I am called to see her on physical examination. She appears to be very intelligent and able to understand things that spoken to her about and her diagnosis is discussed. Also discussed risks, benefits, and alternatives of different methods of treating this. She states she understands things as presented and at this time, we will move forward with intramedullary fixation of the left hip. I have spoken with her daughter and daughter agrees with this. The timing of this may little altered as she does have a history of atrial fibrillation and is on Eliquis. Cardiology and hospitalist will need to clear her. There has definitely been recent data, which shows delaying surgery for 48 hours is not necessary. However, do not feel that this will necessarily be harmful, especially if she needs further cardiac workup, but we will plan on doing this tomorrow if indicated and all of her questions have been answered. GINNY Voice ID: [id number] Report ID: [id number] RAJAT
[2020-03-02 21:17] VITALS: BMI 27.3
[2020-03-02] MEDS ORDERED: ACETAMINOPHEN 500 MG TAB PO PRN (21:42)
[2020-03-02] MEDS: INSULIN -REGULAR HUMAN 50 UNIT/0.5 ML ML SQ SCH (22:12)
[2020-03-03] MEDS ORDERED: MELATONIN 5 MG TABLET PO ONE ×2 (02:09→02:32)
[2020-03-03] MEDS: MORPHINE 2 MG/ML SYR IV PRN (04:56)
[2020-03-03 06:36] LABS: Absolute Lymphocytes (CBC) 1.6 K/uL (0.7-4.9); Basophils % 0.6 % (0-1.3); Hematocrit 34.8 % (36.0-45.0); Lymphocytes % 18.2 % (15.3-44.8); MPV 9.7 fL (7.6-11.3); RBC Red Blood Cell Count 3.77 M/uL (3.86-4.86)
[2020-03-03 06:44] LABS: Magnesium 1.7 mg/dL (1.8-2.4); Phosphorus 3.4 mg/dL (2.5-4.9); Potassium 3.4 mmol/L (3.5-5.1); Thyroid Stimulating Hormone 3.48 uIU/mL (0.360-3.740)
[2020-03-03] MEDS: INSULIN -REGULAR HUMAN 50 UNIT/0.5 ML ML SQ SCH ×4 (07:30→21:32)
[2020-03-03] MEDS ORDERED: MAGNESIUM SULFATE 1 gm IVPB 1 GM/100 ML BAG IV ONE (08:00)
[2020-03-03] MEDS: KCL 20 MEQ/100 mL IVPB 20 MEQ/100 ML BAG IV SCH ×2 (08:26→14:43)
[2020-03-03] MEDS ORDERED: ENOXAPARIN 40 MG/0.4 ML SQ SCH (09:00)
[2020-03-03] MEDS: CEFTRIAXONE 1000 MG/VIAL IVP ONE ×2 (09:00)
[2020-03-03] MEDS ORDERED: CEFTRIAXONE 1 GM/NS 50 ML 1 GM/50 ML BAG IV SCH (09:00)
[2020-03-03] MEDS ORDERED: WATER FOR INJ,STERILE 10 ML IV ONE (09:00)
[2020-03-03] MEDS ORDERED: TRANEXAMIC ACID 1,000 MG in NA CHLORIDE 0.9% 50 ML IV ONE ×2 (09:00→10:00)
--- NOTE | 2020-03-03 09:45 | EKG ---
Test Date: 2020-03-02 Test Time: 15:13:27 Building Architectural Designer: LUIS CARLOS MEASUREMENT RESULTS: Intervals: Rate: 58 MN: QRSD: 90 QT: 404 QTc: 396 [place]: P: MN: QRS: -14 T: 66 INTERPRETIVE STATEMENTS: Atrial fibrillation with slow ventricular response Abnormal ECG No previous ECG available for comparison Electronically Signed On 03-03-20 09:44:14 CDT by Agustin Fleming
[2020-03-03] MEDS ORDERED: NA CHLORIDE 0.9% 1,000 ML ONE (09:55)
[2020-03-03] MEDS ORDERED: CEFAZOLIN/SWI 1gm 1 GM/10 ML SYR ONE (10:47)
[2020-03-03] MEDS ORDERED: LIDOCAINE 2% MPF 5 ML VIAL ONE (10:57)
[2020-03-03] MEDS ORDERED: propofoL 200 MG/20 ML VIAL IV ONE (10:57)
[2020-03-03] MEDS ORDERED: Phenylephrine HCl 10 MG/ML 1 ML VIAL ONE (10:57)
[2020-03-03] MEDS ORDERED: KETOROLAC 30 MG/ML INJ ONE (11:04)
[2020-03-03] MEDS ORDERED: dexAMETHasone 10 MG/ML VIAL ONE (11:04)
[2020-03-03] MEDS ORDERED: ONDANSETRON 4 MG/2 ML VIAL ONE (11:04)
--- NOTE | 2020-03-03 11:10 | P.PN ---
Subjective Date of Service: 03/03/20 Chief Complaint: Fall, left hip fracture. Patient currently has no complain. UA suggest the presence of UTI. She denies pain. Physical Examination - Vital Signs Temperature: 97 F Blood Pressure: 148/53 Pulse: 72 Respirations: 18 Pulse Ox (%): 96 - Physical Exam General: Alert, In no apparent distress Respiratory: Clear to auscultation bilaterally, Normal air movement Cardiovascular: No edema, Regular rate/rhythm, Normal S1 S2 Gastrointestinal: Normal bowel sounds, Soft and benign, No tenderness Integumentary: No erythema - Studies Laboratory Data (last 24 hrs) 03/02/20 15:15: PT 16.6 H, INR 1.42 03/02/20 15:15: WBC 10.4, Hgb 12.8, Hct 38.9, Plt Count 197 03/02/20 15:15: Sodium 143, Potassium 3.5, BUN 25 H, Creatinine 0.93, Glucose 121 H, Magnesium 1.7 L, Total Bilirubin 0.4, AST 14 L, ALT 20, Alkaline Phosphatase 83 Assessment And Plan - Current Problems (Diagnosis) (1) Fall Current Visit: Yes Status: Acute (2) Closed left hip fracture Current Visit: Yes Status: Acute (3) Chronic atrial fibrillation Current Visit: Yes Status: Acute (4) Chronic anticoagulation Current Visit: Yes Status: Acute (5) Diabetes mellitus type 2 in nonobese Current Visit: Yes Status: Acute (6) Essential hypertension Current Visit: Yes Status: Acute - Plan Eliquis on hold. Atrial fibrillation is stable. No echocardiogram on weekends. Cardiology input appreciated. Patient seen by orthopedic surgeon-Dr. Jj and she is planned for surgery today. Pain management with IV morphine. Insulin sliding scale for glucose management. Continue home antihypertensives. Hydralazine p.r.n. for BP spikes. IV Rocephin for UTI. Follow urine culture.
[2020-03-03] MEDS ORDERED: FENTANYL CITR 100 MCG/2 ML ONE (11:43)
[2020-03-03] MEDS ORDERED: GLYCOPYRROLATE 0.2 MG/ML SYR ONE (11:53)
--- NOTE | 2020-03-03 12:13 | P.BOP ---
Preoperative diagnosis: left it fracture Postoperative diagnosis: same Primary procedure: EZE IT fracture Estimated blood loss: 50ccs Anesthesia: General Transferred to: Recovery Room Condition: Good
--- NOTE | 2020-03-03 12:48 | RAD REPORT ---
EXAM DESCRIPTION: RAD - Hip In Or - 03/03/2020 12:39 pm CLINICAL HISTORY: LEFT HIP NAIL DONE IN OR TWO WITH DR DILLON COMPARISON: Pelvis dated 03/02/2020 FINDINGS: Fluoroscopy time 1 minutes.
[2020-03-03] MEDS ORDERED: CEFAZOLIN SODIUM 1 GM/VIAL IVP SCH (17:00)
[2020-03-03] MEDS: WATER FOR INJ,STERILE 10 ML IV SCH (17:00)
[2020-03-03] MEDS ORDERED: CEFAZOLIN/NS 1gm 1 GM/50 ML BAG IVPB SCH (17:00)
[2020-03-03] MEDS: CEFAZOLIN/SWI 1gm 1 GM/10 ML SYR IVP SCH (17:01)
[2020-03-03] MEDS: METOPROLOL TAR 25 MG TAB PO SCH (21:32)
[2020-03-04] MEDS: WATER FOR INJ,STERILE 10 ML IV SCH (00:06)
[2020-03-04] MEDS: CEFAZOLIN/SWI 1gm 1 GM/10 ML SYR IVP SCH ×2 (00:08→08:19)
[2020-03-04 04:41] LABS: Basophils % 0.1 % (0-1.3); Hematocrit 32.5 % (36.0-45.0); Lymphocytes % 7.9 % (15.3-44.8); MPV 9.6 fL (7.6-11.3); RBC Red Blood Cell Count 3.53 M/uL (3.86-4.86)
[2020-03-04 04:48] LABS: Potassium 4.6 mmol/L (3.5-5.1)
[2020-03-04] MEDS: INSULIN -REGULAR HUMAN 50 UNIT/0.5 ML ML SQ SCH ×4 (07:30→20:50)
[2020-03-04] MEDS: APIXABAN 5 MG TABLET PO SCH ×2 (08:19→20:48)
[2020-03-04] MEDS: POTASSIUM CL SA 10 MEQ TAB PO SCH (08:20)
[2020-03-04] MEDS: METOPROLOL TAR 25 MG TAB PO SCH ×2 (08:20→20:48)
[2020-03-04] MEDS: ATORVASTATIN 20 MG TAB PO SCH (08:22)
[2020-03-04] MEDS ORDERED: CEFTRIAXONE/SWI 1gm 1 GM/10 ML SYR IV SCH (09:00)
[2020-03-04] MEDS ORDERED: CEFAZOLIN/SWI 1gm 1 GM/10 ML SYR IVP SCH (09:00)
--- NOTE | 2020-03-04 12:00 | P.PN ---
Subjective Date of Service: 03/04/20 Chief Complaint: Fall, left hip fracture. Status post ORIF yesterday. Patient currently has no complain. Urine culture growing pansensitive E. coli Physical Examination - Vital Signs Temperature: 97 F Blood Pressure: 144/51 Pulse: 65 Respirations: 18 Pulse Ox (%): 96 - Physical Exam General: Alert, In no apparent distress HEENT: Mucous membr. moist/pink Respiratory: Clear to auscultation bilaterally, Normal air movement Cardiovascular: No edema, Regular rate/rhythm, Normal S1 S2 Gastrointestinal: Normal bowel sounds, Soft and benign, No tenderness Neurological: Other (Nonfocal.) - Studies Microbiology Data (last 24 hrs): 03/02/20 16:20 Catheterized Urine [place] Count - Final >100,000 CFU/ML. 03/02/20 16:20 Catheterized Urine - Final Escherichia Coli Assessment And Plan - Current Problems (Diagnosis) (1) Fall Current Visit: Yes Status: Acute (2) Closed left hip fracture Current Visit: Yes Status: Acute (3) Chronic atrial fibrillation Current Visit: Yes Status: Acute (4) Chronic anticoagulation Current Visit: Yes Status: Acute (5) Diabetes mellitus type 2 in nonobese Current Visit: Yes Status: Acute (6) Essential hypertension Current Visit: Yes Status: Acute - Plan Eliquis resumed. Atrial fibrillation is stable. Cardiology input appreciated. Status post ORIF day 2 Pain management with IV morphine. Physical therapy to evaluate. Insulin sliding scale for glucose management. Continue home antihypertensives. Hydralazine p.r.n. for BP spikes. Continue IV Rocephin. Patient to complete 3 doses. Remove Tirado catheter once patient is mobile.
[2020-03-04] MEDS: CEFTRIAXONE/SWI 1gm 1 GM/10 ML SYR IV SCH (20:48)
[2020-03-04] MEDS: MORPHINE 2 MG/ML SYR IV PRN (20:49)
[2020-03-05 01:42] VITALS: O2SAT 97
[2020-03-05 05:39] LABS: Hematocrit 30.9 % (36.0-45.0)
[2020-03-05] MEDS: INSULIN -REGULAR HUMAN 50 UNIT/0.5 ML ML SQ SCH ×4 (07:30→21:17)
[2020-03-05] MEDS: METOPROLOL TAR 25 MG TAB PO SCH ×2 (08:55→21:16)
[2020-03-05] MEDS: POTASSIUM CL SA 10 MEQ TAB PO SCH (08:56)
[2020-03-05] MEDS: APIXABAN 5 MG TABLET PO SCH ×2 (08:56→21:16)
[2020-03-05] MEDS: ATORVASTATIN 20 MG TAB PO SCH (08:56)
--- NOTE | 2020-03-05 17:27 | P.PN ---
Subjective Date of Service: 03/05/20 Chief Complaint: Fall, left hip fracture. Subjective: Improving (The patient feeling better, working with physical therapy, looking forward to getting back to her usual routine) Physical Examination - Vital Signs Temperature: 97.6 F Blood Pressure: 131/60 Pulse: 76 Respirations: 18 Pulse Ox (%): 99 - Physical Exam General: Alert, In no apparent distress HEENT: EOMI, Sclerae nonicteric Neck: Supple Respiratory: Clear to auscultation bilaterally Cardiovascular: Irregular heart rate/rhythm Gastrointestinal: Soft and benign, Non-distended, No tenderness Musculoskeletal: Tenderness (mild, at surgical site) Integumentary: No rashes Neurological: Normal speech, Normal affect Assessment & Plan Physician Review Additional Text: Fall Closed left hip fracture UTI Chronic atrial fibrillation Chronic anticoagulation Diabetes mellitus type 2 in nonobese Essential hypertension Fall Closed left hip fracture -s/p ORIF on 03/03 -doing well postoperatively -working with physical therapy -the patient spoke with family yesterday, wants to be discharged to rehab UTI, acute cystitis, present on admission -Urine culture (03/02): Pansensitive E. coli -treated with Rocephin - today will be day 3, received a day of ancef prior to rocephin Chronic atrial fibrillation Chronic anticoagulation -stable, continue Eliquis Diabetes mellitus type 2 in nonobese -insulin sliding scale Essential hypertension -continue metoprolol -holding home lisinopril perioperatively - with low-normal BP Dispo: SW/CM consulted - working on getting patient to skilled rehab
[2020-03-05] MEDS: CEFTRIAXONE/SWI 1gm 1 GM/10 ML SYR IV SCH (21:16)
--- NOTE | 2020-03-06 02:07 | CON ---
Date of Consultation: 03/03/2020 Reason For Consultation: Chronic atrial fibrillation and cardiac clearance for hip surgery by Dr. Daniel tyson. History Of Present Illness: Ms. Priest is an 80-year-old woman, who has a past medical history of at rial fibrillation, for which she takes Eliquis. She also has a history of diabetes, congestive heart failure, dyslipidemia, and hypertension. She came in with a fall to the ground with a left hip frac ture. Unable to bear weight. No cardiac complaint. Denied PND, orthopnea, pedal edema, palpitation s, or syncope. Denied shortness of breath, chest pain, nausea, vomiting, or diaphoresis. She was in atrial fibrillation at rate of 76. She had an O2 saturation of 97% on room air. Troponin was not d rawn. Her creatinine was 0.95. Her glucose was 150. Her EKG showed atrial fibrillation, rate contr olled. Past Medical History: As stated above. Allergies: NONE. Review of Systems: Negative. Social History: Negative. Family History: Negative. Medications: At home include Eliquis, aspirin, Lasix p.r.n., lisinopril with HCTZ, metformin, metopr olol, potassium, and simvastatin. Physical Examination: Vital Signs: Stable. Afebrile. She was in atrial fibrillation at rate of 69. HEENT: Negative. Neck: Supple. No bruit. Chest: Clear. Cardiac: Atrial fibrillation. Abdomen: Benign. Extremities: No clubbing, cyanosis, or edema. Diagnostic Data: Fairly unremarkable. Her white count was 13, her hemoglobin was 11.0, her platelet count was 175. Creatinine is 0.95 with a GFR of 56. Hip x-ray revealed a fracture. Chest x-ray sh owed some cardiomegaly without any failure. Impression And Plan: 1.The patient is status post fall. No cardiac symptoms. 2.Chronic atrial fibrillation, rate controlled on Eliquis. Chest x-ray showed no failure, atrial fi brillation, showed no acute changes. She has atrial fibrillation. She has no clinical evidence of c oronary artery disease or congestive heart failure at this point. I think she is at low risk for per ioperative mortality. We obviously need to continue to hold her Eliquis for now and resume it once i t is okay with Dr. Jj. 3.Her other issues include hypertension, diabetes, dyslipidemia, and chronic diastolic congestive he art failure. All of those are stable at this point. I will be available for questions. I will continue to follow Ms. Priest postoperatively. JENNIFER/ANGELINE Voice ID: [id number] Report ID: [id number]
[2020-03-06 06:22] LABS: Absolute Lymphocytes (CBC) 1.4 K/uL (0.7-4.9); Basophils % 0.7 % (0-1.3); Hematocrit 28.8 % (36.0-45.0); Lymphocytes % 15.5 % (15.3-44.8); RBC Red Blood Cell Count 3.11 M/uL (3.86-4.86)
[2020-03-06] MEDS: INSULIN -REGULAR HUMAN 50 UNIT/0.5 ML ML SQ SCH ×3 (07:30→16:48)
[2020-03-06] MEDS: APIXABAN 5 MG TABLET PO SCH ×2 (09:02→23:02)
[2020-03-06] MEDS: POTASSIUM CL SA 10 MEQ TAB PO SCH (09:02)
[2020-03-06] MEDS: METOPROLOL TAR 25 MG TAB PO SCH ×2 (09:02→23:02)
[2020-03-06] MEDS: ATORVASTATIN 20 MG TAB PO SCH (09:02)
--- NOTE | 2020-03-06 16:10 | PN ---
Date of Progress Note: 03/06/2020 The patient is seen today. She is sitting comfortably at the side of the bed. Her dressing is intac t. She says she may be leaving soon, but apparently is doing very well with therapy. If she is disc harged, then we would change the Aquacel dressing to a new fresh Aquacel and give her another Aquacel for home use. The saloni should be removed on day 12-14. She will continue touchdown weightbearin g. Recommend continue anticoagulation with Lovenox, Xarelto, Eliquis, until postop week 3 . She can follow up with me whenever she would like. Definitely, we would want to see her back in 6 weeks for x-rays and probable advancing the weightbearing, although she can see me sooner if she alirio ires or she has any problems. /ANGELINE Voice ID: [id number] Report ID: [id number]
[2020-03-06] MEDS ORDERED: DOCUSATE NA 100 MG CAP PO PRN (17:41)
--- NOTE | 2020-03-06 18:52 | P.PN ---
Subjective Date of Service: 03/06/20 Chief Complaint: Fall, left hip fracture. Subjective: Improving (pain better controlled, participating with PT, tolerating diet) Physical Examination - Vital Signs Temperature: 97.5 F Blood Pressure: 144/59 Pulse: 82 Respirations: 16 Pulse Ox (%): 96 - Physical Exam General: Alert, In no apparent distress Neck: No LAD Respiratory: Clear to auscultation bilaterally, Normal air movement Cardiovascular: Regular rate/rhythm, Normal S1 S2 Gastrointestinal: Soft and benign, Non-distended, No tenderness Musculoskeletal: Tenderness (along surgical site) Integumentary: Other (dressings c/d/i) Assessment & Plan Physician Review Additional Text: Fall Closed left hip fracture UTI Chronic atrial fibrillation Chronic anticoagulation Diabetes mellitus type 2 in nonobese Essential hypertension Fall Closed left hip fracture -s/p ORIF on 03/03 -doing well postoperatively -working with physical therapy -the patient spoke with family yesterday, wants to be discharged to rehab -SW/CM consulted UTI, acute cystitis, present on admission -Urine culture (03/02): Pansensitive E. coli -completed 3 days of rocephin, switched to keflex Chronic atrial fibrillation Chronic anticoagulation -stable, continue Eliquis Diabetes mellitus type 2 in nonobese -insulin sliding scale Essential hypertension -continue metoprolol -holding home lisinopril perioperatively - with low-normal BP Dispo: SW/CARLOS consulted - working on getting patient to skilled rehab Time Spent Managing Pts Care (In Minutes): 35
[2020-03-06] MEDS: CEPHALEXIN 250 MG CAP PO SCH (23:03)
[2020-03-07 04:35] LABS: Hematocrit 28.1 % (36.0-45.0); MPV 8.8 fL (7.6-11.3); RBC Red Blood Cell Count 3.05 M/uL (3.86-4.86)
[2020-03-07 04:56] LABS: Potassium 4.1 mmol/L (3.5-5.1)
[2020-03-07] MEDS: INSULIN -REGULAR HUMAN 50 UNIT/0.5 ML ML SQ SCH (07:30)
[2020-03-07] MEDS: ATORVASTATIN 20 MG TAB PO SCH (08:07)
[2020-03-07] MEDS: APIXABAN 5 MG TABLET PO SCH (08:07)
[2020-03-07] MEDS: METOPROLOL TAR 25 MG TAB PO SCH (08:08)
[2020-03-07] MEDS: POTASSIUM CL SA 10 MEQ TAB PO SCH (08:08)
[2020-03-07] MEDS: CEPHALEXIN 250 MG CAP PO SCH (08:08)
--- NOTE | 2020-03-07 11:35 | PN ---
Date of Progress Note: 03/06/2020 Subjective: I have followed Mrs. Pirest intermittently. She was initially seen for preop clearance for Dr. Jj for hip surgery. Her past medical history included atrial fibrillation for which she was taking Eliquis. She sees Dr. Rincon in [place] on as- needed basis. No other cardiac history was revealed. She underwent surgery and did very well postop eratively. She does have chronic atrial fibrillation, but her rate remained controlled. Her Eliquis was resolved. She does not have any clinical evidence of CHF or CAD. She is asymptomatic today. T he plan is to send her to rehab on 03/07/2020. She is going to rehab in [place]. We will sign off her case. She will follow up with Dr. Rincon on an as-needed basis. She is to continue her present m edication including the Eliquis. JENNIFER/ANGELINE Voice ID: [id number] Report ID: [id number]
--- NOTE | 2020-03-07 11:56 | P.DS ---
Admission Date: 03/02/20 Discharge Date: 03/07/20 Disposition: TRANSFER TO SENIOR CARE Discharge Condition: GOOD Reason for Admission: Fall, left hip fracture. Consultations: Cardiology - Dr. Fleming Orthopedics - Dr. Jj Procedures: CT brain and C-spine: No acute findings Left hip x-ray: Left femur intertrochanteric fracture Problem list Fall, closed left hip fracture now status post repair UTI, acute cystitis present on admission Chronic atrial fibrillation on anticoagulation Diabetes mellitus type 2 Essential hypertension Hospital Course: 80-year-old female, PMH: Chronic AFib on Eliquis, HTN, diabetes who presented after a mechanical fall at [facility]. She reported she tripped and fell on the [place] landing on her left side. Evaluation in the ED discovered a left hip intertrochanteric fracture. She was also found to have a UTI, and urine culture grew pansensitive E. coli. Patient was treated with Rocephin and transition to Keflex once cultures resulted. Orthopedic surgery was consulted and patient underwent repair on 03/03. In the ED, patient's initial troponin was 0.08 and cardiology was consulted for preop clearance. She did not have any cardiac complaints. On day of discharge the patient was done well, tolerating a diet, voiding and stooling without issue. Patient was discharged to a skilled rehab facility. Vital Signs/Physical Exam: Temp Pulse Resp BP Pulse Ox 97.0 F 62 20 119/49 L 97 03/07/20 08:00 03/07/20 08:08 03/07/20 08:00 03/07/20 08:08 03/07/20 08:00 General: Alert, In no apparent distress HEENT: Mucous membr. moist/pink, Sclerae nonicteric Neck: Supple, No LAD Respiratory: Clear to auscultation bilaterally, Normal air movement Cardiovascular: Regular rate/rhythm, Normal S1 S2 Gastrointestinal: Soft and benign, Non-distended, No tenderness Musculoskeletal: No erythema, Tenderness (Very minimal at site of surgery) Integumentary: No erythema Neurological: Normal speech, Sensation intact, Normal affect Laboratory Data at Discharge: WBC 9.4 K/uL (4.3-10.9) 03/07/20 04:02 Hgb 9.6 g/dL (12.0-15.0) L 03/07/20 04:02 Hct 28.1 % (36.0-45.0) L 03/07/20 04:02 Plt Count 196 K/uL (152-406) 03/07/20 04:02 PT 16.6 SECONDS (9.5-12.5) H 03/02/20 15:15 INR 1.42 03/02/20 15:15 Sodium 140 mmol/L (136-145) 03/07/20 04:02 Potassium 4.1 mmol/L (3.5-5.1) 03/07/20 04:02 BUN 19 mg/dL (7-18) H 03/07/20 04:02 Creatinine 0.65 mg/dL (0.55-1.3) 03/07/20 04:02 Glucose 112 mg/dL (74-106) H 03/07/20 04:02 Phosphorus 2.7 mg/dL (2.5-4.9) 03/05/20 05:12 Magnesium 2.0 mg/dL (1.8-2.4) 03/04/20 04:07 Total Bilirubin 0.4 mg/dL (0.2-1.0) 03/02/20 15:15 AST 14 U/L (15-37) L 03/02/20 15:15 ALT 20 U/L (12-78) 03/02/20 15:15 Alkaline Phosphatase 83 U/L (45-117) 03/02/20 15:15 Troponin I 0.09 ng/mL (0.0-0.045) H 03/03/20 02:05 Home Medications: Apixaban [Eliquis] 5 mg PO BID 03/02/20 Furosemide 20 mg PO DAILYPRN PRN 03/02/20 Metformin HCl 500 mg PO BID 03/02/20 Metoprolol Tartrate 25 mg PO BID 03/02/20 Potassium Chloride 20 meq PO DAILY 03/02/20 Simvastatin 40 mg PO DAILY 03/02/20 Cephalexin [Keflex*] 1 tab PO Q6HR 3 Days #12 cap 03/07/20 New Medications: Cephalexin [Keflex*] 1 tab PO Q6HR 3 Days #12 cap Patient Discharge Instructions: Charles should be removed on day 12-14. (03/15- 03/17). Follow up with Dr. Jj (Orthopedics) in 6 weeks for x-rays, or sooner if any issue arises. Follow up with PCP within 1-2 weeks of discharge from rehab/SNF Diet: ADA Activity: Touch-down Followup: Jimenez Jj MD [ACTIVE - CAN ADMIT] - Time spent managing pt's care (in minutes): 35
[2020-03-07 12:30] VITALS: BP 129/63; TEMP 97.3
--- NOTE | 2020-03-11 22:54 | OP ---
Date of Procedure: 03/03/2020 Surgeon: Jimenez Jj MD Preoperative Diagnosis: Left intertrochanteric fracture. Postoperative Diagnosis: Left intertrochanteric fracture. Procedure: Left intertrochanteric fracture closed reduction with intramedullary kati fixation. Estimated Blood Loss: 50 cc. Complications: None. Specimens: No pathology specimens sent. Indication For Operation: Ms. Priest is a patient, who unfortunately fell injuring her left lower ex tremity. She was seen and examined in the Emergency Department, where she was ruled out for other in juries. However, unfortunately, she did have an intertrochanteric fracture on the left. Risks, bene fits, and alternatives to treating this have been discussed with both the patient as well as her fami ly. They states they understand things as presented and wished to proceed. Description Of Procedure: The patient was taken to the operating room and placed in supine position. General anesthesia was obtained by staff. Following this, she was then positioned on the fracture table, able to obtain a good reduction with appropriate padding of bony prominences. Following this, left lower extremity was then prepped and draped in usual sterile fashion for procedure. An incisio n was then made superior to the greater trochanter, taken down carefully through skin and soft tissue s. The starting awl was then used to establish a starting port. This was followed by placement of t he guide kati. The hand molder meat was then used to ream past the lesser trochanter and a size 9 nail was then selected. It was then placed to appropriate depth and cephalomedullary screws were placed usin g biplanar C-arm radiography to confirm placement. Following this, a standard distal interlocking sc rew was placed. The wounds were irrigated and the fascia was closed using heavy Vicryl sutures, foll owed by closure of the skin using Vicryl followed by saloni. The patient was then placed in the Aqu acel dressing. She is awakened and taken to recovery room in good condition. There were no complica tions. SE/MODL Voice ID: [id number] Report ID: [id number]
== END 2020-03-07 14:07 | DRG 481 ==
LOC: ER 14:56 → ERHOLD 16:58 → 2ND 20:09
PROVIDERS: ADMIT Internal Medicine; ATTEND Hospitalist
PROC: 0QS746Z Reposition Left Upper Femur with Intramedullary Internal Fixation Device, Percutaneous Endoscopic Approach (ICD-10-PCS; principal; 2020-03-03 10:00)
DX: S72.142A Displaced intertrochanteric fracture of left femur, initial encounter for closed fracture (principal); I48.20 Chronic atrial fibrillation, unspecified; N30.00 Acute cystitis without hematuria; I50.32 Chronic diastolic (congestive) heart failure; I11.0 Hypertensive heart disease with heart failure; E11.9 Type 2 diabetes mellitus without complications; E78.5 Hyperlipidemia, unspecified; B96.20 Unspecified Escherichia coli [E. coli] as the cause of diseases classified elsewhere; Y92.59 Other trade areas as the place of occurrence of the external cause; W01.198A Fall on same level from slipping, tripping and stumbling with subsequent striking against other object, initial encounter; Z79.01 Long term (current) use of anticoagulants; Z20.828 Contact with and (suspected) exposure to other viral communicable diseases
CPT/HCPCS: 36415; 51702; 70450; 71045; 72125; 72170; 73530; 80048; 80076; 81003; 82947; 83735; 83880; 84100; 84132; 84443; 84484; 85014; 85018; 85025; 85027; 85610; 87077; 87086; 87088; 87186; 93005; 94760; 96361; 96365; 96375; 97110; 97112; 97116; 97161; 97530; 99285; G0390; J0690; J0696; J1100; J2270; J2370; J2405; J2704; J3010; J3475; J3480; J7030; U0002